=== PATIENT | female | born 1990 | race Caucasian/White ===

== ENCOUNTER 2016-12-21 17:56 | Emergency (ER) | payer MEDICAID ==
[~2016-12-21] VITALS: Ht 162.6 cm; Wt 116.6 kg
[~2016-12-21 17:56] MED LIST: CEPH-368 PO; HYDR-3240 PO; PHEN-418 PO; PREN1TAB62 PO; QUET400T6 PO; SULF1TAB3 PO
[2016-12-21 17:59] VITALS: BP 133/79
== END 2016-12-21 20:19 | disposition left against medical advice (07) ==
LOC: ED 18:50
DX: R10.9 Unspecified abdominal pain (principal); Z53.21 Procedure and treatment not carried out due to patient leaving prior to being seen by health care provider

== ENCOUNTER 2017-05-19 18:23 | Emergency (ER) | payer MEDICAID ==
[~2017-05-19] VITALS: Ht 162.6 cm; Wt 119.0 kg
[2017-05-19 19:31] LABS: HEMATOCRIT 41.9 % (34.6-47.8); HEMOGLOBIN 13.6 g/dL (11.7-16.4); WHITE BLOOD COUNT 9.3 x10^3/uL (3.4-10)
[2017-05-19 19:44] LABS: BLOOD UREA NITROGEN 12 mg/dL (7-18)
[2017-05-19 19:52] LABS: IS PT STATUS REG ER OR PRE ER? YES
[2017-05-19] MEDS ORDERED: IBUPROFEN 200 MG TABLET ONE (20:08)
[2017-05-19 20:12] VITALS: BP 129/89
[2017-05-19] MEDS ORDERED: IBUPROFEN 200 MG TABLET PO ONE (20:30)
== END 2017-05-19 20:15 | disposition home or self-care (01) ==
LOC: ED 19:45
DX: R07.89 Other chest pain (principal); F31.9 Bipolar disorder, unspecified; E11.9 Type 2 diabetes mellitus without complications; J45.909 Unspecified asthma, uncomplicated
CPT/HCPCS: 36415; 71020; 80048; 82040; 84484; 85025; 93005; 96360; 96361; 99285

== ENCOUNTER 2017-05-27 21:29 | Emergency (ER) | payer MEDICAID ==
[~2017-05-27] VITALS: Ht 162.6 cm; Wt 122.5 kg
[2017-05-27 21:39] VITALS: BP 116/75
[2017-05-27] MEDS ORDERED: KETOROLAC 30 MG/1 ML IM ONE (22:00)
[2017-05-27] MEDS ORDERED: KETOROLAC 30 MG/1 ML ONE (22:18)
== END 2017-05-27 22:55 | disposition home or self-care (01) ==
LOC: ED 22:10
DX: M94.0 Chondrocostal junction syndrome [Tietze] (principal); E11.9 Type 2 diabetes mellitus without complications; J45.909 Unspecified asthma, uncomplicated; G43.909 Migraine, unspecified, not intractable, without status migrainosus
CPT/HCPCS: 71010; 93005; 96372; 99284; J1885

== ENCOUNTER 2017-06-02 17:56 | Emergency (ER) | payer MEDICAID ==
[~2017-06-02] VITALS: Ht 162.6 cm; Wt 119.3 kg
[~2017-06-02 17:56] MED LIST changes: +SULF-169 PO; -SULF1TAB3 PO
[2017-06-02 18:03] VITALS: BP 129/80
[2017-06-02] MEDS ORDERED: SODIUM CHLORIDE FLUSH 10ML SYR IVF ONE (18:30)
[2017-06-02] MEDS ORDERED: SODIUM CHLORIDE 0.9% 1,000ML IVBOLUS ONE (18:30)
[2017-06-02 18:36] LABS: HEMATOCRIT 44.4 % (34.6-47.8); HEMOGLOBIN 14.6 g/dL (11.7-16.4); WHITE BLOOD COUNT 10.6 x10^3/uL (3.4-10)
[2017-06-02 18:48] LABS: BLOOD UREA NITROGEN 12 mg/dL (7-18)
[2017-06-02 20:39] LABS: ASPARTATE AMINO TRANSFERASE 12 U/L (15-37)
== END 2017-06-02 21:25 | disposition home or self-care (01) ==
LOC: ED 20:49
DX: K92.2 Gastrointestinal hemorrhage, unspecified (principal); K92.1 Melena; R10.13 Epigastric pain
CPT/HCPCS: 36415; 80048; 80076; 82040; 83690; 84703; 85025; 96360; 96361; 99285; J7030